=== PATIENT | female | born 1935 | race Caucasian/White ===

== ENCOUNTER → 2017-07-24 | Day surgery (SDC) | payer MEDICARE, BC | LOC: JP.SDS 00:11 | PROVIDERS: ATTEND Ophthalmology | DX: H26.9 Unspecified cataract (principal); Z53.8 Procedure and treatment not carried out for other reasons ==

== ENCOUNTER 2017-10-03 16:54 | Emergency (ER) | payer MEDICARE, BC ==
[2017-10-03] MEDS ORDERED: HYDROmorphone 1 MG/ML Syringe IM ONE (18:09)
--- NOTE | 2017-10-03 18:13 | EDM.PDOC ---
ED HPI GENERAL MEDICAL PROBLEM - General Chief Complaint: Lower Extremity Injury/Pain Stated Complaint: SPERLE SENT OVER FOR CT Time Seen by Provider: 10/03/17 17:59 Source of Information: Reports: Patient, Family, RN Notes Reviewed History Limitations: Reports: No Limitations - History of Present Illness INITIAL COMMENTS - FREE TEXT/NARRATIVE: 82-year-old female presents emergency department day complaint of left hip pain she does have a history of surgery 2 as well as severe osteoporosis on this left hip she states about a week ago she was bending over picked up a piece of lint off the floor sudden onset of pain has now developed severe bruising and difficulty with ambulation hard for her to bear weight she denies any specific trauma but states she did go to the floor at the time of pain onset Left Hip Pain Score (Numeric/FACES): 6 - Related Data Allergies Allergy/AdvReac Type Severity Reaction Status Date / Time Penicillins Allergy Facial Verified 10/03/17 17:42 Swelling lisinopril AdvReac Cough Verified 10/03/17 17:42 Home Meds: Home Meds Acetaminophen [Tylenol] 650 mg PO ASDIRECTED PRN 10/03/17 [History] Aspirin [Halfprin] 1 tab PO BEDTIME 10/03/17 [History] Gabapentin [Neurontin] 1 tab PO DAILY 10/03/17 [History] LORazepam [LORazepam] 1 tab PO ASDIRECTED 10/03/17 [History] Latanoprost [Latanoprost] 1 drop EYEBOTH BEDTIME 10/03/17 [History] Levothyroxine [Synthroid] 1 tab PO DAILY 10/03/17 [History] Losartan [Cozaar] 1 tab PO DAILY 10/03/17 [History] Propranolol [Inderal] 1 tab PO DAILY 10/03/17 [History] Sertraline [Zoloft] 150 mg PO BEDTIME 10/03/17 [History] Zolpidem Tartrate [Zolpidem Tartrate] 1 tab PO BEDTIME 10/03/17 [History] atorvaSTATin [Lipitor] 1 tab PO BEDTIME 10/03/17 [History] fentaNYL [Duragesic] 1 patch TOP ASDIRECTED 10/03/17 [History] fentaNYL [Duragesic] 1 patch TOP ASDIRECTED 10/03/17 [History] Past Medical History HEENT History: Reports: Glaucoma, Impaired Vision Cardiovascular History: Reports: High Cholesterol, Hypertension Gastrointestinal History: Reports: Chronic Constipation, Diverticulosis, GERD, Hiatal Hernia, Irritable Bowel Syndrome 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 Social & Family History - Tobacco Use Smoking Status *Q: Never Smoker - Recreational Drug Use Recreational Drug Use: No Review of Systems - Review of Systems Review Of Systems: See Below Respiratory: Reports: No Symptoms Cardiovascular: Reports: No Symptoms Musculoskeletal: Reports: Joint Pain (Left hip pain) Skin: Reports: Bruising Neurological: Reports: No Symptoms ED EXAM, GENERAL - Physical Exam Exam: See Below Free Text/Narrative:: Examination of the left hip there is a large ecchymotic bruise over the hip and gluteus area on the left side she is tender to palpation of the greater trochanter however flexion-extension internal and external Rotation of the hip do not elicit pain she cannot bear weight without tenderness Exam Limited By: No Limitations General Appearance: Alert, WD/WN, No Apparent Distress Respiratory/Chest: No Respiratory Distress Course - Vital Signs Last Recorded V/S: Last Vital Signs Temp 97.2 F 10/03/17 17:38 Pulse 69 10/03/17 19:54 Resp 18 10/03/17 17:38 BP 133/74 10/03/17 19:54 Pulse Ox 92 L 10/03/17 19:54 - Orders/Labs/Meds Orders: Active Orders 24 hr Category Date Time Status Hip wo Cont Lt [CT] Stat Exams 10/03/17 18:09 Taken Labs: Laboratory Tests 10/03/17 10/03/17 Range/Units 18:23 18:23 WBC 6.6 (4.5-11.0) K/uL RBC 4.20 (3.30-5.50) M/uL Hgb 13.1 (12.0-15.0) g/dL Hct 40.1 (36.0-48.0) % MCV 96 (80-98) fL MCH 31 (27-31) pg MCHC 33 (32-36) % Plt Count 303 (150-400) K/uL Neut % (Auto) 47 (36-66) % Lymph % (Auto) 34 (24-44) % Wilkes % (Auto) 12 H (2-6) % Eos % (Auto) 6 H (2-4) % Baso % (Auto) 1 (0-1) % Sodium 139 L (140-148) mmol/L Potassium 4.0 (3.6-5.2) mmol/L Chloride 104 (100-108) mmol/L Carbon Dioxide 31 (21-32) mmol/L Anion Gap 8.0 (5.0-14.0) mmol/L BUN 14 (7-18) mg/dL Creatinine 0.9 (0.6-1.0) mg/dL Est Cr Clr Drug Dosing 48.48 mL/min Estimated GFR (MDRD) > 60 (>60) Glucose 100 (74-106) mg/dL Calcium 9.1 (8.5-10.1) mg/dL Meds: Medications Discontinued Medications Generic Name Dose Route Start Last Admin Trade Name Freq PRN Reason Stop Dose Admin Hydromorphone HCl 1 mg 10/03/17 18:09 10/03/17 19:00 Dilaudid IM 10/03/17 18:10 1 mg ONETIME ONE Administration Departure - Departure Time of Disposition: 20:03 Disposition: Home, Self-Care 01 Condition: Fair Clinical Impression: Left hip pain, Hematoma - Discharge Information Referrals: Miguel Lema MD [Primary Care Provider] - Forms: ED Department Discharge Additional Instructions: Use hydrocodone as needed for pain control, Please followup with your primary care provider in 3-5 days if not better, please call return to the emergency department with worsening of symptoms. - My Orders Last 24 Hours: My Active Orders 10/03/17 18:09 Hip wo Cont Lt [CT] Stat - Assessment/Plan Last 24 Hours: My Active Orders 10/03/17 18:09 Hip wo Cont Lt [CT] Stat Plan: Assessment Acuity = acute Site and laterality = left hip pain with large intramuscular bruising Etiology = unclear etiology Manifestations = none Location of injury = Home Lab values = CBC, BMP unremarkable, CT scan shows fragmented ossification superior to the left femoral neck of unclear chronicity left gluteus lisa intramuscular hematoma Plan Did review lab work CT scan results with her she is not interested in any surgical intervention at this time plan is to treat additional pain with hydrocodone therefore prescription written for 10 tablets 5/325 one by mouth 3 times a day when necessary follow-up primary care 3-5 days for reevaluation Patient was in agreement with the plan all questions were answered, they were instructed to return to the emergency department or call for worsening symptoms. This note was dictated using Wattpad voice recognition software please call with any questions.
== END 2017-10-03 20:10 | disposition home or self-care (01) ==
LOC: JP.ED 16:54
DX: S70.02XA Contusion of left hip, initial encounter (principal); E03.9 Hypothyroidism, unspecified; M81.0 Age-related osteoporosis without current pathological fracture; E11.9 Type 2 diabetes mellitus without complications; K21.9 Gastro-esophageal reflux disease without esophagitis; I10 Essential (primary) hypertension; Z88.0 Allergy status to penicillin; Z88.8 Allergy status to other drugs, medicaments and biological substances; Z79.82 Long term (current) use of aspirin; Z79.899 Other long term (current) drug therapy; X50.9XXA Other and unspecified overexertion or strenuous movements or postures, initial encounter
CPT/HCPCS: 36415; 73700; 80048; 85025; 96372; 99284; J1170; 99283

== ENCOUNTER 2018-03-26 21:25 | Emergency (ER) | payer MEDICARE, BC ==
--- NOTE | 2018-03-26 22:17 | EDM.PDOC ---
ED HPI GENERAL MEDICAL PROBLEM - General Chief Complaint: General Stated Complaint: ILLNESS Time Seen by Provider: 03/26/18 21:45 Source of Information: Reports: Patient, EMS History Limitations: Reports: No Limitations - History of Present Illness INITIAL COMMENTS - FREE TEXT/NARRATIVE: 82-year-old female with a long history of anxiety and panic attacks felt a fluttering in and uncomfortable feeling in her chest earlier this evening about 2 hours ago. She had no pain or shortness of breath. She took an Ativan that didn't seem to be helping as much as it normally does so she called the ambulance. Ambulance commented that her blood pressure was high, gave her nitroglycerin and by the time she came to the emergency room her symptoms had resolved. An EKG in route showed no arrhythmia. She has no fevers or chills, cough, nausea or vomiting. Patient was concerned that her blood pressure was " so high, 150/90" Onset: Sudden Duration: Hour(s): (Within the last 2-3 hours) Severity: Mild Associated Symptoms: Denies: Chest Pain, Cough, Loss of Appetite, Nausea/ Vomiting - Related Data Allergies Allergy/AdvReac Type Severity Reaction Status Date / Time Penicillins Allergy Facial Verified 10/03/17 17:42 Swelling lisinopril AdvReac Cough Verified 10/03/17 17:42 Home Meds: Home Meds Acetaminophen [Tylenol] 650 mg PO ASDIRECTED PRN 10/03/17 [History] Aspirin [Halfprin] 1 tab PO BEDTIME 10/03/17 [History] Gabapentin [Neurontin] 1 tab PO DAILY 10/03/17 [History] LORazepam 1 tab PO ASDIRECTED 10/03/17 [History] Latanoprost 1 drop EYEBOTH BEDTIME 10/03/17 [History] Levothyroxine [Synthroid] 1 tab PO DAILY 10/03/17 [History] Losartan [Cozaar] 1 tab PO DAILY 10/03/17 [History] Propranolol [Inderal] 1 tab PO DAILY 10/03/17 [History] Sertraline [Zoloft] 150 mg PO BEDTIME 10/03/17 [History] Zolpidem Tartrate 1 tab PO BEDTIME 10/03/17 [History] atorvaSTATin [Lipitor] 1 tab PO BEDTIME 10/03/17 [History] fentaNYL [Duragesic] 1 patch TOP ASDIRECTED 10/03/17 [History] fentaNYL [Duragesic] 1 patch TOP ASDIRECTED 10/03/17 [History] Past Medical History HEENT History: Reports: Glaucoma, Impaired Vision Cardiovascular History: Reports: High Cholesterol, Hypertension Gastrointestinal History: Reports: Chronic Constipation, Diverticulosis, GERD, Hiatal Hernia, 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 Social & Family History - Tobacco Use Smoking Status *Q: Never Smoker - Caffeine Use Caffeine Use: Reports: Coffee - Recreational Drug Use Recreational Drug Use: No ED ROS GENERAL - Review of Systems Review Of Systems: See Below Constitutional: Denies: Fever, Chills Respiratory: Denies: Shortness of Breath, Cough Cardiovascular: Reports: Palpitations. Denies: Chest Pain GI/Abdominal: Denies: Abdominal Pain, Nausea Skin: Reports: No Symptoms Neurological: Denies: Headache Psychiatric: Reports: Anxiety ED EXAM, GENERAL - Physical Exam Exam: See Below Exam Limited By: No Limitations General Appearance: Alert, No Apparent Distress Eye Exam: Bilateral Eye: EOMI Respiratory/Chest: No Respiratory Distress, Lungs Clear Cardiovascular: Regular Rate, Rhythm GI/Abdominal: Non-Tender Neurological: Alert, Oriented Psychiatric: Anxious Skin Exam: Warm, Dry Course - Vital Signs Last Recorded V/S: Last Vital Signs Temp 99.1 F 03/26/18 21:45 Pulse 66 03/26/18 21:45 Resp 20 03/26/18 21:45 BP 135/76 03/26/18 21:45 Pulse Ox 98 03/26/18 21:45 - Re-Assessments/Exams Free Text/Narrative Re-Assessment/Exam: 03/26/18 22:42 Patient was monitored for over an hour and was very stable, had no additional symptoms and her vitals were normal. She was discharged without further workup. Departure - Departure Time of Disposition: 22:54 Disposition: Home, Self-Care 01 Condition: Good Clinical Impression: Anxiety about health, Palpitations - Discharge Information Instructions: Palpitations, [id number] Referrals: PCP,None [Primary Care Provider] - Forms: ED Department Discharge Care Plan Goals: Continue your current medications, get rest tonight and return at any time if worsening or concerns.
== END 2018-03-26 22:54 | disposition home or self-care (01) ==
LOC: JP.ED 21:25
DX: F41.9 Anxiety disorder, unspecified (principal); E78.00 Pure hypercholesterolemia, unspecified; I10 Essential (primary) hypertension; E11.9 Type 2 diabetes mellitus without complications; E03.9 Hypothyroidism, unspecified; Z88.8 Allergy status to other drugs, medicaments and biological substances; Z88.0 Allergy status to penicillin; Z79.899 Other long term (current) drug therapy
CPT/HCPCS: 99283

== ENCOUNTER 2018-08-22 18:16 | Emergency (ER) | payer MEDICARE, BC ==
[2018-08-22] MEDS ORDERED: Aspirin 81 MG Tab.Chew PO ONE (18:31)
--- NOTE | 2018-08-22 18:34 | EDM.PDOC ---
ED HPI GENERAL MEDICAL PROBLEM - General Chief Complaint: Chest Pain Stated Complaint: CHEST PAIN Time Seen by Provider: 08/22/18 18:32 Source of Information: Reports: Patient History Limitations: Reports: No Limitations - History of Present Illness INITIAL COMMENTS - FREE TEXT/NARRATIVE: pt arrived because she was having chest pain this afternoon. The ambulance did come when she put her medical alert on and decided not to bring her. Her daughter stopped in and she was still having pain so brought her to the er. Onset: Today Duration: Hour(s): Location: Reports: Chest Chest Pain Score (Numeric/FACES): 7 - Related Data Allergies Allergy/AdvReac Type Severity Reaction Status Date / Time Penicillins Allergy Facial Verified 08/22/18 18:26 Swelling lisinopril AdvReac Cough Verified 08/22/18 18:26 Home Meds: Home Meds Acetaminophen [Tylenol] 650 mg PO ASDIRECTED PRN 10/03/17 [History] Aspirin [Halfprin] 1 tab PO BEDTIME 10/03/17 [History] Gabapentin [Neurontin] 1 tab PO DAILY 10/03/17 [History] LORazepam 1 tab PO ASDIRECTED 10/03/17 [History] Latanoprost 1 drop EYEBOTH BEDTIME 10/03/17 [History] Levothyroxine [Synthroid] 1 tab PO DAILY 10/03/17 [History] Losartan [Cozaar] 1 tab PO DAILY 10/03/17 [History] Propranolol [Inderal] 1 tab PO DAILY 10/03/17 [History] Sertraline [Zoloft] 150 mg PO BEDTIME 10/03/17 [History] Zolpidem Tartrate 1 tab PO BEDTIME 10/03/17 [History] fentaNYL [Duragesic] 1 patch TOP ASDIRECTED 10/03/17 [History] Past Medical History HEENT History: Reports: Glaucoma, Impaired Vision Cardiovascular History: Reports: High Cholesterol, Hypertension Gastrointestinal History: Reports: Chronic Constipation, Diverticulosis, GERD, Hiatal Hernia, 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 Social & Family History - Caffeine Use Caffeine Use: Reports: Coffee ED ROS GENERAL - Review of Systems Review Of Systems: See Below Constitutional: Reports: No Symptoms HEENT: Reports: No Symptoms Respiratory: Reports: No Symptoms Cardiovascular: Reports: Chest Pain, Other (pt has pain between her shoulder blades. ) GI/Abdominal: Reports: Other (pt has a known history of a hiatal hernia. ) : Reports: No Symptoms Musculoskeletal: Reports: No Symptoms Skin: Reports: No Symptoms Neurological: Reports: No Symptoms Psychiatric: Reports: Anxiety ED EXAM, GENERAL - Physical Exam Exam: See Below Free Text/Narrative:: pt arrived with pain in the epigastric area. This extends to the chest and she has pain between her shoulder blades. Exam Limited By: No Limitations General Appearance: Alert, Anxious, Moderate Distress Ears: Normal TMs Nose: Normal Inspection Throat/Mouth: Normal Inspection Head: Atraumatic Neck: Normal Inspection Respiratory/Chest: No Respiratory Distress Cardiovascular: Regular Rate, Rhythm, Other (pt is having pain accross her chest and bwetween the shoulder blades. ) GI/Abdominal: Soft, Non-Tender (Female) Exam: Deferred Rectal (Female) Exam: Deferred Back Exam: Normal Inspection Extremities: Normal Inspection Neurological: Alert, Oriented, Normal Cognition Psychiatric: Anxious Course - Vital Signs Last Recorded V/S: Last Vital Signs Temp 36.7 C 08/22/18 18:37 Pulse 64 08/22/18 21:47 Resp 16 08/22/18 21:47 BP 134/68 08/22/18 21:47 Pulse Ox 92 L 08/22/18 21:47 - Orders/Labs/Meds Orders: Active Orders 24 hr Category Date Time Status EKG Documentation Completion [RC] ASDIRECTED Care 08/22/18 18:30 Active Chest 1V Frontal [CR] Stat Exams 08/22/18 18:44 Taken Nitroglycerin [Nitrostat] Med 08/22/18 19:19 Active 0.4 mg SL Q5M PRN Sodium Chloride 0.9% [Normal Saline] 1,000 ml Med 08/22/18 19:00 Active IV ASDIRECTED EKG 12 Lead [EK] Routine Ther 08/22/18 18:30 Ordered Medication Orders Sodium Chloride (Normal Saline) 1,000 mls @ 150 mls/hr IV ASDIRECTED WILLIAM Last Admin: 08/22/18 18:57 Dose: 150 mls/hr Nitroglycerin (Nitrostat) 0.4 mg SL Q5M PRN PRN Reason: Chest Pain Last Admin: 08/22/18 19:10 Dose: 0.4 mg Labs: Laboratory Tests 08/22/18 08/22/18 08/22/18 Range/Units 18:42 18:42 18:42 WBC 6.7 (4.5-11.0) K/uL RBC 4.19 (3.30-5.50) M/uL Hgb 13.2 (12.0-15.0) g/dL Hct 40.3 (36.0-48.0) % MCV 96 (80-98) fL MCH 32 H (27-31) pg MCHC 33 (32-36) % Plt Count 276 (150-400) K/uL Neut % (Auto) 50 (36-66) % Lymph % (Auto) 31 (24-44) % Maury % (Auto) 12 H (2-6) % Eos % (Auto) 6 H (2-4) % Baso % (Auto) 1 (0-1) % Sodium 138 L (140-148) mmol/L Potassium 4.4 (3.6-5.2) mmol/L Chloride 104 (100-108) mmol/L Carbon Dioxide 29 (21-32) mmol/L Anion Gap 9.4 (5.0-14.0) mmol/L BUN 16 (7-18) mg/dL Creatinine 1.0 (0.6-1.0) mg/dL Est Cr Clr Drug Dosing 42.91 mL/min Estimated GFR (MDRD) 53 L (>60) Glucose 114 H (74-106) mg/dL Calcium 8.5 (8.5-10.1) mg/dL Total Bilirubin 0.4 (0.2-1.0) mg/dL AST 20 (15-37) U/L ALT 14 (12-78) U/L Alkaline Phosphatase 96 (46-116) U/L Troponin I < 0.017 (0.000-0.056) ng/mL Total Protein 6.8 (6.4-8.2) g/dL Albumin 3.2 L (3.4-5.0) g/dL Globulin 3.6 H (2.3-3.5) g/dL Albumin/Globulin Ratio 0.9 L (1.2-2.2) Lipase (73-393) U/L TSH, Ultra Sensitive (0.358-3.740) uIU/mL 08/22/18 08/22/18 08/22/18 Range/Units 18:42 19:18 21:01 WBC (4.5-11.0) K/uL RBC (3.30-5.50) M/uL Hgb (12.0-15.0) g/dL Hct (36.0-48.0) % MCV (80-98) fL MCH (27-31) pg MCHC (32-36) % Plt Count (150-400) K/uL Neut % (Auto) (36-66) % Lymph % (Auto) (24-44) % Maury % (Auto) (2-6) % Eos % (Auto) (2-4) % Baso % (Auto) (0-1) % Sodium (140-148) mmol/L Potassium (3.6-5.2) mmol/L Chloride (100-108) mmol/L Carbon Dioxide (21-32) mmol/L Anion Gap (5.0-14.0) mmol/L BUN (7-18) mg/dL Creatinine (0.6-1.0) mg/dL Est Cr Clr Drug Dosing mL/min Estimated GFR (MDRD) (>60) Glucose (74-106) mg/dL Calcium (8.5-10.1) mg/dL Total Bilirubin (0.2-1.0) mg/dL AST (15-37) U/L ALT (12-78) U/L Alkaline Phosphatase (46-116) U/L Troponin I < 0.017 (0.000-0.056) ng/mL Total Protein (6.4-8.2) g/dL Albumin (3.4-5.0) g/dL Globulin (2.3-3.5) g/dL Albumin/Globulin Ratio (1.2-2.2) Lipase 53 L (73-393) U/L TSH, Ultra Sensitive 1.900 (0.358-3.740) uIU/mL Meds: Medications Generic Name Dose Route Start Last Admin Trade Name Frejose PRN Reason Stop Dose Admin Sodium Chloride 1,000 mls @ 150 mls/hr 08/22/18 19:00 08/22/18 18:57 Normal Saline IV 150 mls/hr ASDIRECTED WILLIAM Administration Nitroglycerin 0.4 mg 08/22/18 19:19 08/22/18 19:10 Nitrostat SL 0.4 mg Q5M PRN Administration Chest Pain Discontinued Medications Generic Name Dose Route Start Last Admin Trade Name Freq PRN Reason Stop Dose Admin Aspirin 243 mg 08/22/18 18:31 08/22/18 19:00 Aspirin PO 08/22/18 18:32 Not Given ONETIME ONE Al Hydroxide/Mg Hydroxide 15 0 ml 08/22/18 19:18 08/22/18 19:22 ml/ Lidocaine HCl 15 ml PO 08/22/18 19:19 30 ml ONETIME ONE Administration Hydromorphone HCl 0.5 mg 08/22/18 19:37 08/22/18 19:46 Dilaudid IVPUSH 08/22/18 19:38 0.5 mg ONETIME ONE Administration Hydromorphone HCl 1 mg 08/22/18 20:09 08/22/18 20:17 Dilaudid IVPUSH 08/22/18 20:10 1 mg ONETIME ONE Administration Nitroglycerin 0.4 mg 08/22/18 18:46 08/22/18 18:50 Nitrostat SL 08/22/18 18:47 0.4 mg ONETIME ONE Administration Pantoprazole Sodium 40 mg 08/22/18 19:44 08/22/18 19:50 Protonix Iv IVPUSH 08/22/18 19:45 40 mg ONETIME ONE Administration - Re-Assessments/Exams Free Text/Narrative Re-Assessment/Exam: 08/22/18 20:11 pt arrived with pain in the chest and between the shoulder blades. Her ekg shows a rt bundle branch block that is not new. Her trop x2 is neg. Her chest xray reveals a large hital hernia. Her other labs are good. She was given a GI cocktail that was not helpful. Her pain did not improve with nitro. She was given dilaudid 1.5 total with relief of the pain. 08/22/18 21:58 Departure - Departure Time of Disposition: 22:01 Disposition: Home, Self-Care 01 Condition: Fair Clinical Impression: Hiatal hernia with GERD, Strain of thoracic paraspinal muscles excluding T1 and T2 levels Referrals: Miguel Lema MD [Primary Care Provider] - Forms: ED Department Discharge Care Plan Goals: heat to her back area, pt has zantac at home she needs to resume that bid, cont other meds the same. Avoid lying flat particularly after eating, percocet 5/325 q6h prn for severe pain rtc if increased problems. - My Orders Last 24 Hours: My Active Orders 08/22/18 18:30 EKG Documentation Completion [RC] ASDIRECTED EKG 12 Lead [EK] Routine 08/22/18 18:44 Chest 1V Frontal [CR] Stat 08/22/18 19:00 Sodium Chloride 0.9% [Normal Saline] 1,000 ml IV ASDIRECTED 08/22/18 19:19 Nitroglycerin [Nitrostat] 0.4 mg SL Q5M PRN - Assessment/Plan Last 24 Hours: My Active Orders 08/22/18 18:30 EKG Documentation Completion [RC] ASDIRECTED EKG 12 Lead [EK] Routine 08/22/18 18:44 Chest 1V Frontal [CR] Stat 08/22/18 19:00 Sodium Chloride 0.9% [Normal Saline] 1,000 ml IV ASDIRECTED 08/22/18 19:19 Nitroglycerin [Nitrostat] 0.4 mg SL Q5M PRN
[2018-08-22] MEDS ORDERED: Nitroglycerin 0.4 MG Tab.SL SL ONE (18:46)
[2018-08-22] MEDS ORDERED: Sodium Chloride 0.9% 1,000 ML IV SCH (19:00)
[2018-08-22] MEDS ORDERED: Alum Hydrox/Mag Hydrox/Simeth 15 ML, Lidocaine 2% 15 ML PO ONE ×2 (19:18)
[2018-08-22] MEDS ORDERED: Nitroglycerin 0.4 MG Tab.SL SL PRN (19:19)
[2018-08-22] MEDS ORDERED: HYDROmorphone 0.5 MG/0.5 ML Syringe IVPUSH ONE (19:37)
[2018-08-22] MEDS ORDERED: Pantoprazole 40 MG Vial IVPUSH ONE (19:44)
[2018-08-22] MEDS ORDERED: HYDROmorphone 1 MG/ML Syringe IVPUSH ONE (20:09)
--- NOTE | 2018-08-24 08:54 | CR ---
CHEST: Portable CLINICAL HISTORY:Chest pain COMPARISON:2006 FINDINGS: Patient has a very large hiatal hernia containing much of the stomach. Heart size is aldo l. Pulmonary vascularity is mildly cephalized. This may be positional. No infiltrate or effusion is s een. Impression: Very large hiatal hernia Mild vascular cephalization may be positional
== END 2018-08-22 22:35 | disposition home or self-care (01) ==
LOC: JP.ED 18:16
DX: S29.012A Strain of muscle and tendon of back wall of thorax, initial encounter (principal); K44.9 Diaphragmatic hernia without obstruction or gangrene; K21.9 Gastro-esophageal reflux disease without esophagitis; Z88.0 Allergy status to penicillin; Z88.8 Allergy status to other drugs, medicaments and biological substances; Z79.82 Long term (current) use of aspirin; I10 Essential (primary) hypertension; E11.9 Type 2 diabetes mellitus without complications; X58.XXXA Exposure to other specified factors, initial encounter
CPT/HCPCS: 36415; 71045; 80053; 83690; 84443; 84484; 85025; 93005; 96361; 96374; 96375; 96376; 99285; A9270; C9113; J1170; J7030; 99284

== ENCOUNTER 2019-01-13 15:21 | Emergency (ER) | payer BC, MEDICARE ==
[2019-01-13] MEDS ORDERED: Ketorolac 30 MG/ML SDV IM ONE (16:22)
--- NOTE | 2019-01-13 16:25 | EDM.PDOC ---
ED HPI GENERAL MEDICAL PROBLEM - General Chief Complaint: General Stated Complaint: [place] Time Seen by Provider: 01/13/19 16:18 Source of Information: Reports: Patient, EMS, Family, RN Notes Reviewed History Limitations: Reports: No Limitations - History of Present Illness INITIAL COMMENTS - FREE TEXT/NARRATIVE: 83-year-old female presents to the emergency department today via EMS services for chest pain, she admits to falling yesterday in her bathroom felt she landed mostly on her tailbone but she is unsure. She now has a sharp stabbing pain underneath her right breast she is pain-free while laying down but however sits up and will move this will exacerbate the pain, no nausea vomiting no diaphoresis Right Chest Pain Score (Numeric/FACES): 4 - Related Data Allergies Allergy/AdvReac Type Severity Reaction Status Date / Time Penicillins Allergy Facial Verified 08/22/18 18:26 Swelling lisinopril AdvReac Cough Verified 08/22/18 18:26 Home Meds: Home Meds Acetaminophen [Tylenol] 650 mg PO ASDIRECTED PRN 10/03/17 [History] Aspirin [Halfprin] 1 tab PO BEDTIME 10/03/17 [History] LORazepam 1 tab PO ASDIRECTED 10/03/17 [History] Latanoprost 1 drop EYEBOTH BEDTIME 10/03/17 [History] Levothyroxine [Synthroid] 1 tab PO DAILY 10/03/17 [History] Losartan [Cozaar] 1 tab PO DAILY 10/03/17 [History] Propranolol [Inderal] 1 tab PO DAILY 10/03/17 [History] Sertraline [Zoloft] 150 mg PO BEDTIME 10/03/17 [History] Zolpidem Tartrate 1 tab PO BEDTIME 10/03/17 [History] fentaNYL [Duragesic] 1 patch TOP ASDIRECTED 10/03/17 [History] Past Medical History HEENT History: Reports: Glaucoma, Impaired Vision Cardiovascular History: Reports: High Cholesterol, Hypertension Gastrointestinal History: Reports: Chronic Constipation, Diverticulosis, GERD, Hiatal Hernia, Irritable Bowel Syndrome FAMILY [employer] COUNSELLOR History: Reports: Musculoskeletal History: Reports: Fracture, Osteoporosis Psychiatric History: Reports: Depression Endocrine/Metabolic History: Reports: Diabetes, Type II, Hypothyroidism, Osteoporosis - Infectious Disease History Infectious Disease History: Reports: Chicken Pox, Measles, Mumps - Past Surgical History Head Surgeries/Procedures: Reports: None HEENT Surgical History: Reports: Tonsillectomy GI Surgical History: Reports: Appendectomy, Cholecystectomy, Colonoscopy, EGD, Hernia, Inguinal Musculoskeletal Surgical History: Reports: Hip Replacement, Other (See Below) Other Musculoskeletal Surgeries/Procedures:: ORIF Hip-pins and a anirudh. Dermatological Surgical History: Reports: None Social & Family History - Tobacco Use Smoking Status *Q: Never Smoker - Caffeine Use Caffeine Use: Reports: Coffee - Recreational Drug Use Recreational Drug Use: No ED ROS GENERAL - Review of Systems Review Of Systems: See Below Constitutional: Reports: No Symptoms HEENT: Reports: No Symptoms Respiratory: Reports: No Symptoms Cardiovascular: Reports: Chest Pain GI/Abdominal: Reports: No Symptoms : Reports: No Symptoms Musculoskeletal: Reports: No Symptoms Skin: Reports: No Symptoms Neurological: Reports: No Symptoms ED EXAM, GENERAL - Physical Exam Exam: See Below Exam Limited By: No Limitations General Appearance: Alert, WD/WN, No Apparent Distress Respiratory/Chest: No Respiratory Distress, Lungs Clear, Normal Breath Sounds, No Accessory Muscle Use, Other (Point tender right side midaxilla T5 region) Cardiovascular: Regular Rate, Rhythm, No Murmur GI/Abdominal: Soft, Non-Tender Course - Vital Signs Last Recorded V/S: Last Vital Signs Temp 98.8 F 01/13/19 15:34 Pulse 65 01/13/19 15:34 Resp 13 01/13/19 15:34 BP 158/69 H 01/13/19 15:34 Pulse Ox 94 L 01/13/19 15:34 - Orders/Labs/Meds Meds: Medications Discontinued Medications Generic Name Dose Route Start Last Admin Trade Name Araseli PRN Reason Stop Dose Admin Ketorolac Tromethamine 30 mg 01/13/19 16:22 01/13/19 16:54 Toradol IM 01/13/19 16:23 30 mg ONETIME ONE Administration Departure - Departure Time of Disposition: 17:34 Disposition: Home, Self-Care 01 Condition: Fair Clinical Impression: Chest wall pain - Discharge Information Referrals: PCP,None [Primary Care Provider] - Forms: ED Department Discharge Additional Instructions: Use nonsteroidal anti-inflammatories as needed for pain control, Please followup with your primary care provider in 3-5 days if not better, please call return to the emergency department with worsening of symptoms. - Assessment/Plan Plan: Assessment Acuity = acute Site and laterality = left-sided wall chest pain Etiology = secondary to a fall Manifestations = none Location of injury = Home Lab values = chest x-ray shows old compression fractures and large hiatal hernia otherwise no rib fractures are identified EKG performed by EMS reveals sinus rhythm first degree heart block right bundle branch block EKG is similar to August 2018 Plan She had good relief with the Toradol injection plan is to continue nonsteroidal anti-inflammatories follow-up primary care 3-5 days if not better This note was dictated using [employer] voice recognition software please call with any questions on syntax or grammar.
--- NOTE | 2019-01-13 16:50 | CRLCR ---
INDICATION: Fall 3 days prior, pain T5 region TECHNIQUE: Chest 2 views. COMPARISON: 08/22/2018 FINDINGS: Cardiovascular and mediastinum: Heart size and vasculature are normal in caliber and appearance. Mediastinum is within normal limits. Large hiatal hernia. Lungs and pleural spaces: Lungs are clear. No sign of infiltrate or mass. No sign of pleural effusion. No pneumothorax. Bones and soft tissues: Severe compression deformities involving 2 lower thoracic vertebral bodies with adjacent area of vertebroplasty. IMPRESSION: Severe compression deformities involving 2 lower thoracic vertebral bodies of unknown acuity. No prior exams for comparison. Large hiatal hernia. Dictated by Praveen Ren MD @ 01/13/2019 4:49:05 PM Dictated by: Praveen Ren MD @ 01/13/2019 16:49:09 (Electronically Signed)
== END 2019-01-13 17:42 | disposition home or self-care (01) ==
LOC: JP.ED 15:21
DX: R07.89 Other chest pain (principal); E78.00 Pure hypercholesterolemia, unspecified; I10 Essential (primary) hypertension; K21.9 Gastro-esophageal reflux disease without esophagitis; F32.9 Major depressive disorder, single episode, unspecified; E11.9 Type 2 diabetes mellitus without complications; E03.9 Hypothyroidism, unspecified; W18.30XA Fall on same level, unspecified, initial encounter; Y92.002 Bathroom of unspecified non-institutional (private) residence as the place of occurrence of the external cause; Z88.0 Allergy status to penicillin; Z88.8 Allergy status to other drugs, medicaments and biological substances; Z79.82 Long term (current) use of aspirin; Z79.899 Other long term (current) drug therapy
CPT/HCPCS: 71046; 96372; 99285; J1885; 99284

== ENCOUNTER 2019-04-15 13:35 | Emergency (ER) | payer MEDICARE, MEDICAID ==
[2019-04-15] MEDS ORDERED: HYDROmorphone 0.5 MG/0.5 ML Syringe IVPUSH ONE (14:29)
[2019-04-15] MEDS ORDERED: Sodium Chloride 0.9% 1,000 ML IV SCH (14:30)
--- NOTE | 2019-04-15 15:58 | EDM.PDOC ---
ED HPI GENERAL MEDICAL PROBLEM - General Chief Complaint: Abdominal Pain Stated Complaint: ABDOMINAL PAIN Time Seen by Provider: 04/15/19 14:25 Source of Information: Reports: Patient, Family History Limitations: Reports: No Limitations - History of Present Illness INITIAL COMMENTS - FREE TEXT/NARRATIVE: 84-year-old female brought in by her daughter because of significant left lower quadrant pain for the past 8 hours. No bowel changes, no nausea or vomiting but the pain is fairly intense. No radiation to the back. No urinary symptoms. She has had this type of pain many times in the past but it has never lasted this long. No recent trauma. Onset: Sudden (Started fairly suddenly around 8 AM) Duration: Hour(s): (8 hours) Location: Reports: Abdomen Quality: Reports: Sharp Severity: Moderate Associated Symptoms: Denies: Chest Pain, Cough, Diaphoresis, Fever/Chills, Malaise, Nausea/Vomiting, Shortness of Breath, Weakness Left Lower Abdominal Pain Score (Numeric/FACES): 7 - Related Data Allergies Allergy/AdvReac Type Severity Reaction Status Date / Time Penicillins Allergy Facial Verified 04/15/19 14:07 Swelling lisinopril AdvReac Cough Verified 04/15/19 14:07 Home Meds: Home Meds Acetaminophen [Tylenol] 650 mg PO ASDIRECTED PRN 10/03/17 [History] Aspirin [Halfprin] 1 tab PO BEDTIME 10/03/17 [History] LORazepam 1 tab PO ASDIRECTED 10/03/17 [History] Latanoprost 1 drop EYEBOTH BEDTIME 10/03/17 [History] Levothyroxine [Synthroid] 1 tab PO DAILY 10/03/17 [History] Losartan [Cozaar] 1 tab PO DAILY 10/03/17 [History] Propranolol [Inderal] 1 tab PO DAILY 10/03/17 [History] Sertraline [Zoloft] 150 mg PO BEDTIME 10/03/17 [History] Zolpidem Tartrate 1 tab PO BEDTIME 10/03/17 [History] fentaNYL [Duragesic] 1 patch TOP ASDIRECTED 10/03/17 [History] Docusate Sodium [Colace] 50 mg PO DAILY 04/15/19 [History] Docusate Sodium [Dulcolax Stool Softener] 100 mg RECTAL ASDIRECTED PRN 04/15/19 [History] Past Medical History HEENT History: Reports: Glaucoma, Impaired Vision Cardiovascular History: Reports: High Cholesterol, Hypertension Gastrointestinal History: Reports: Chronic Constipation, Diverticulosis, GERD, Hiatal Hernia, Irritable Bowel Syndrome [employer]PER[employer]OR History: Reports: Musculoskeletal History: Reports: Fracture, Osteoporosis Psychiatric History: Reports: Depression Endocrine/Metabolic History: Reports: Diabetes, Type II, Hypothyroidism, Osteoporosis - Infectious Disease History Infectious Disease History: Reports: Chicken Pox, Measles, Mumps - Past Surgical History Head Surgeries/Procedures: Reports: None HEENT Surgical History: Reports: Cataract Surgery, Tonsillectomy Cardiovascular Surgical History: Reports: None, Aneurysm GI Surgical History: Reports: Appendectomy, Cholecystectomy, Colonoscopy, EGD, Hernia, Inguinal Endocrine Surgical History: Reports: None Musculoskeletal Surgical History: Reports: Hip Replacement, Other (See Below) Other Musculoskeletal Surgeries/Procedures:: ORIF Hip-pins and a anirudh. Dermatological Surgical History: Reports: None Social & Family History - Tobacco Use Smoking Status *Q: Never Smoker Second Hand Smoke Exposure: No - Caffeine Use Caffeine Use: Reports: Coffee - Recreational Drug Use Recreational Drug Use: No ED ROS GENERAL - Review of Systems Review Of Systems: See Below Constitutional: Denies: Fever, Chills HEENT: Reports: No Symptoms Respiratory: Denies: Shortness of Breath Cardiovascular: Denies: Chest Pain GI/Abdominal: Reports: Abdominal Pain. Denies: Constipation, Diarrhea : Reports: No Symptoms Skin: Reports: No Symptoms Neurological: Reports: No Symptoms Psychiatric: Reports: No Symptoms ED EXAM, GI/ABD - Physical Exam Exam: See Below Exam Limited By: No Limitations General Appearance: Alert, Mild Distress (Looks fairly uncomfortable) Eyes: Bilateral: Normal Appearance Respiratory/Chest: No Respiratory Distress, Lungs Clear Cardiovascular: Regular Rate, Rhythm GI/Abdominal Exam: Normal Bowel Sounds, Tender (Very tender to palpation in the left lower quadrant with some mild to moderate guarding but no significant rebound tenderness) Back Exam: No: CVA Tenderness (R), CVA Tenderness (L) Neurological: Alert, Oriented Psychiatric: Anxious Skin Exam: Warm, Dry Course - Vital Signs Last Recorded V/S: Last Vital Signs Temp 97.4 F 04/15/19 14:11 Pulse 86 04/15/19 14:11 Resp 16 04/15/19 14:11 BP 165/90 H 04/15/19 14:11 Pulse Ox 95 04/15/19 14:11 - Orders/Labs/Meds Labs: Laboratory Tests 04/15/19 04/15/19 Range/Units 14:28 14:28 WBC 5.9 (4.5-11.0) K/uL RBC 4.39 (3.30-5.50) M/uL Hgb 13.7 (12.0-15.0) g/dL Hct 42.6 (36.0-48.0) % MCV 97 (80-98) fL MCH 31 (27-31) pg MCHC 32 (32-36) % Plt Count 256 (150-400) K/uL Neut % (Auto) 61 (36-66) % Lymph % (Auto) 23 L (24-44) % Schuyler % (Auto) 10 H (2-6) % Eos % (Auto) 6 H (2-4) % Baso % (Auto) 1 (0-1) % Sodium 137 L (140-148) mmol/L Potassium 4.2 (3.6-5.2) mmol/L Chloride 102 (100-108) mmol/L Carbon Dioxide 29 (21-32) mmol/L Anion Gap 10.2 (5.0-14.0) mmol/L BUN 15 (7-18) mg/dL Creatinine 1.1 H (0.6-1.0) mg/dL Est Cr Clr Drug Dosing 36.91 mL/min Estimated GFR (MDRD) 48 L (>60) Glucose 127 H (74-106) mg/dL Calcium 8.9 (8.5-10.1) mg/dL Total Bilirubin 0.4 (0.2-1.0) mg/dL AST 17 (15-37) U/L ALT 16 (12-78) U/L Alkaline Phosphatase 83 (46-116) U/L Total Protein 6.9 (6.4-8.2) g/dL Albumin 3.5 (3.4-5.0) g/dL Globulin 3.4 (2.3-3.5) g/dL Albumin/Globulin Ratio 1.0 L (1.2-2.2) Meds: Medications Discontinued Medications Generic Name Dose Route Start Last Admin Trade Name Freq PRN Reason Stop Dose Admin Hydromorphone HCl 0.5 mg 04/15/19 14:29 04/15/19 14:54 Dilaudid IVPUSH 04/15/19 14:30 0.5 mg ONETIME ONE Administration Sodium Chloride 1,000 mls @ 250 mls/hr 04/15/19 14:30 04/15/19 14:57 Normal Saline IV 250 mls/hr ASDIRECTED WILLIAM Administration - Re-Assessments/Exams Free Text/Narrative Re-Assessment/Exam: 04/15/19 15:58 IV was started and the patient was given 0.5 mg of IV Dilaudid, a CBC CMP were obtained and a CT scan without contrast of the abdomen obtained. CBC returned normal. 04/15/19 18:44 CT scan returned showing no acute findings and the patient was feeling much better. She may have to have a laparoscopy at some point to look for scar tissue if this is a recurring problem but it is not necessary at this time as symptoms have resolved. She'll return if pain recurs and is unrelenting. She was encouraged to use stool softeners and drink water. Departure - Departure Time of Disposition: 17:08 Disposition: Home, Self-Care 01 Condition: Good Clinical Impression: Abdominal pain Qualifiers: Abdominal location: left lower quadrant Qualified Code(s): R10.32 - Left lower quadrant pain - Discharge Information Instructions: Abdominal Pain, Adult, [id number] Referrals: Miguel Lema MD [Primary Care Provider] - Forms: ED Department Discharge Care Plan Goals: Advance diet and activity as tolerated, no medication changes. Return anytime if worsening or concerns.
--- NOTE | 2019-04-15 16:00 | CRLCT ---
INDICATION: Severe left lower abdominal pain. TECHNIQUE: Volumetric helical scanning of the abdomen and pelvis was performed without contrast material. Coronal and sagittal reconstructions were obtained. COMPARISON: None FINDINGS: Sigmoid diverticulosis is demonstrated. There is no evidence of diverticulitis. The bowel is otherwise unremarkable except for a large hiatal hernia. No free fluid is demonstrated. The liver is normal in size, shape and attenuation. Post op changes of cholecystectomy are demonstrated. No bile duct dilation is evident. The spleen is within normal limits. The adrenal glands are unremarkable. The pancreas is within normal limits. The kidneys are unremarkable. No lymphadenopathy is evident. A right hip replacement is demonstrated produces considerable artifact in the pelvis. The uterus and ovaries are grossly negative The lung bases are clear. Mild fibrotic changes are present in both bases. The heart is normal in size. Calcified coronary arterial plaque is demonstrated. IMPRESSION: 1. Etiology of left lower abdominal pain not evident. 2. Sigmoid diverticulosis but no evidence of diverticulitis 3. Large hiatal hernia. 4. Post cholecystectomy and right hip replacement. Please note that all CT scans at this facility use dose modulation, iterative reconstruction, and/or weight-based dosing when appropriate to reduce radiation dose to as low as reasonably achievable. Dictated by Beny Delong MD @ Apr 15 2019 3:54PM Signed by Dr. Beny Delong @ Apr 15 2019 3:59PM
== END 2019-04-15 17:08 | disposition home or self-care (01) ==
LOC: JP.ED 13:35
DX: R10.32 Left lower quadrant pain (principal); E78.00 Pure hypercholesterolemia, unspecified; I10 Essential (primary) hypertension; F32.9 Major depressive disorder, single episode, unspecified; E11.9 Type 2 diabetes mellitus without complications; E03.9 Hypothyroidism, unspecified; Z88.0 Allergy status to penicillin; Z88.8 Allergy status to other drugs, medicaments and biological substances; Z79.82 Long term (current) use of aspirin; Z79.899 Other long term (current) drug therapy
CPT/HCPCS: 36415; 74176; 80053; 85025; 96361; 96374; 99284; J1170; J7030

== ENCOUNTER 2020-03-26 16:47 | Emergency (ER) | payer MEDICARE, MEDICAID ==
[2020-03-26] MEDS ORDERED: Polyethylene Glycol 3350 Powder 17 GM Packet PO ONE (17:38)
--- NOTE | 2020-03-26 17:44 | EDM.PDOC ---
<Darell Sarkar G - Last Filed: 03/29/20 07:10> ED HPI GENERAL MEDICAL PROBLEM - General Chief Complaint: Abdominal Pain Stated Complaint: MEDICAL VIA TRI Time Seen by Provider: 03/26/20 17:30 Source of Information: Reports: Patient, EMS, Old Records, RN History Limitations: Reports: No Limitations - History of Present Illness INITIAL COMMENTS - FREE TEXT/NARRATIVE: 84 yo female is brought in via EMS from her home in [facility] for mid to L lateral abdominal pain that began mid afternoon today and has since subsided some. Has a fentanyl patch that constipates her such that she has to have a suppository to have a BM. Her last BM was yesterday. Has not used a suppository today. No nausea, vomiting or fever. Pain does not move. No increase in pain with coughing. EMS gave no tx. Lives alone. Onset: Today Onset Date: 03/26/20 Onset Time: 15:00 Duration: Hour(s):, Improving Location: Reports: Abdomen Quality: Reports: Dull Severity: Mild (was worse earlier) Improves with: Reports: Other (time has lessened the pain) Worsens with: Reports: Other (? lack of BM) Context: Reports: Other (See HPI) Associated Symptoms: Reports: No Other Symptoms Treatments FINISH FILER: Reports: Other (see below) (none) Lower Abdomen Pain Score (Numeric/FACES): 7 - Related Data Allergies Allergy/AdvReac Type Severity Reaction Status Date / Time Penicillins Allergy Facial Verified 03/26/20 16:58 Swelling lisinopril AdvReac Cough Verified 03/26/20 16:58 Home Meds: Home Meds Acetaminophen [Tylenol] 650 mg PO ASDIRECTED PRN 10/03/17 [History] Aspirin [Halfprin] 1 tab PO BEDTIME 10/03/17 [History] LORazepam 1 tab PO ASDIRECTED 10/03/17 [History] Latanoprost 1 drop EYEBOTH BEDTIME 10/03/17 [History] Levothyroxine [Synthroid] 1 tab PO DAILY 10/03/17 [History] Losartan [Cozaar] 1 tab PO DAILY 10/03/17 [History] Propranolol [Inderal] 1 tab PO DAILY 10/03/17 [History] Sertraline [Zoloft] 150 mg PO BEDTIME 10/03/17 [History] Zolpidem Tartrate 1 tab PO BEDTIME 10/03/17 [History] fentaNYL [Duragesic] 1 patch TOP ASDIRECTED 10/03/17 [History] Docusate Sodium [Colace] 50 mg PO DAILY 04/15/19 [History] Docusate Sodium [Dulcolax Stool Softener] 100 mg RECTAL ASDIRECTED PRN 04/15/19 [History] Past Medical History HEENT History: Reports: Glaucoma, Impaired Vision Cardiovascular History: Reports: High Cholesterol, Hypertension Gastrointestinal History: Reports: Chronic Constipation, Diverticulosis, GERD, Hiatal Hernia, Irritable Bowel Syndrome 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: Musculoskeletal History: Reports: Fracture, Osteoporosis Psychiatric History: Reports: Depression Endocrine/Metabolic History: Reports: Diabetes, Type II, Hypothyroidism, Osteoporosis - Infectious Disease History Infectious Disease History: Reports: Chicken Pox, Measles, Mumps - Past Surgical History Head Surgeries/Procedures: Reports: None HEENT Surgical History: Reports: Cataract Surgery, Tonsillectomy Cardiovascular Surgical History: Reports: None, Aneurysm GI Surgical History: Reports: Appendectomy, Cholecystectomy, Colonoscopy, EGD, Hernia, Inguinal Endocrine Surgical History: Reports: None Musculoskeletal Surgical History: Reports: Hip Replacement, Other (See Below) Other Musculoskeletal Surgeries/Procedures:: ORIF Hip-pins and a anirudh. Dermatological Surgical History: Reports: None Social & Family History - Tobacco Use Smoking Status *Q: Never Smoker Second Hand Smoke Exposure: No - Caffeine Use Caffeine Use: Reports: Coffee - Recreational Drug Use Recreational Drug Use: No ED ROS GENERAL - Review of Systems Review Of Systems: See Below Constitutional: Reports: No Symptoms HEENT: Reports: No Symptoms Respiratory: Reports: No Symptoms Cardiovascular: Reports: No Symptoms GI/Abdominal: Reports: Abdominal Pain, Constipation (mild). Denies: Anorexia, Black Stool, Bloody Stool, Diarrhea, Distension, Flatus, Hematemesis, Hematochezia, Melena, Nausea, Vomiting : Reports: No Symptoms Musculoskeletal: Reports: No Symptoms Skin: Reports: No Symptoms Neurological: Reports: No Symptoms ED EXAM, GI/ABD - Physical Exam Exam: See Below Exam Limited By: No Limitations General Appearance: Alert, WD/WN, No Apparent Distress Eyes: Bilateral: Normal Appearance Ears: Normal External Exam, Normal Canal, Hearing Grossly Normal Nose: Normal Inspection, No Blood Throat/Mouth: Normal Inspection, Normal Lips, Normal Oropharynx, Normal Voice, No Airway Compromise Head: Atraumatic, Normocephalic Neck: Normal Inspection, Non-Tender Respiratory/Chest: No Respiratory Distress, Lungs Clear, Normal Breath Sounds, No Accessory Muscle Use Cardiovascular: Regular Rate, Rhythm, No Edema GI/Abdominal Exam: Normal Bowel Sounds, Soft, No Distention, Tender (mild mid to L lateral tenderness). No: Distended, Guarding, Rigid, Rebound Back Exam: Normal Inspection. No: CVA Tenderness (R), CVA Tenderness (L) Extremities: Normal Inspection Neurological: Alert, Oriented, CN II-XII Intact, Normal Cognition, No Motor/ Sensory Deficits Psychiatric: Normal Affect, Normal Mood Skin Exam: Warm, Dry, Intact, Normal Color, No Rash Course - Vital Signs Last Recorded V/S: Last Vital Signs Temp 36.8 C 03/26/20 16:48 Pulse 66 03/26/20 16:48 Resp 16 03/26/20 16:48 BP 160/76 H 03/26/20 16:48 Pulse Ox 94 L 03/26/20 16:48 - Orders/Labs/Meds Labs: Laboratory Tests 03/26/20 03/26/20 03/26/20 Range/Units 17:38 17:38 18:42 WBC 5.9 (4.5-11.0) K/uL RBC 4.31 (3.30-5.50) M/uL Hgb 13.5 (12.0-15.0) g/dL Hct 41.8 (36.0-48.0) % MCV 97 (80-98) fL MCH 31 (27-31) pg MCHC 32 (32-36) % Plt Count 268 (150-400) K/uL Sodium (140-148) mmol/L Potassium (3.6-5.2) mmol/L Chloride (100-108) mmol/L Carbon Dioxide (21-32) mmol/L Anion Gap (5.0-14.0) mmol/L BUN (7-18) mg/dL Creatinine (0.6-1.0) mg/dL Est Cr Clr Drug Dosing mL/min Estimated GFR (MDRD) (>60) Glucose (74-106) mg/dL Calcium (8.5-10.1) mg/dL Total Bilirubin (0.2-1.0) mg/dL AST (15-37) U/L ALT (12-78) U/L Alkaline Phosphatase (46-116) U/L C-Reactive Protein 0.12 (0.0-0.3) mg/dL Total Protein (6.4-8.2) g/dL Albumin (3.4-5.0) g/dL Globulin (2.3-3.5) g/dL Albumin/Globulin Ratio (1.2-2.2) TSH, Ultra Sensitive (0.358-3.740) uIU/mL Urine Color Yellow (YELLOW) Urine Appearance Slightly cloudy A (CLEAR) Urine pH 7.0 (5.0-8.0) Ur Specific [place] 1.025 (1.008-1.030) Urine Protein Negative (NEGATIVE) mg/dL Urine Glucose (UA) Negative (NEGATIVE) mg/dL Urine Ketones Negative (NEGATIVE) mg/dL Urine Occult Blood Trace-intact H (NEGATIVE) Urine Nitrite Negative (NEGATIVE) Urine Bilirubin Negative (NEGATIVE) Urine Urobilinogen 0.2 (0.2-1.0) EU/dL Ur Leukocyte Esterase Moderate H (NEGATIVE) Urine RBC 0-5 (0-5) Urine WBC Not seen (0-5) Ur Epithelial Cells Moderate Amorphous Sediment Moderate Urine Bacteria Moderate Urine Mucus Not seen 03/26/20 03/26/20 Range/Units 18:42 19:22 WBC (4.5-11.0) K/uL RBC (3.30-5.50) M/uL Hgb (12.0-15.0) g/dL Hct (36.0-48.0) % MCV (80-98) fL MCH (27-31) pg MCHC (32-36) % Plt Count (150-400) K/uL Sodium 140 (140-148) mmol/L Potassium 4.3 (3.6-5.2) mmol/L Chloride 103 (100-108) mmol/L Carbon Dioxide 28 (21-32) mmol/L Anion Gap 9.3 (5.0-14.0) mmol/L BUN 12 (7-18) mg/dL Creatinine 1.1 H (0.6-1.0) mg/dL Est Cr Clr Drug Dosing 38.34 mL/min Estimated GFR (MDRD) 48 L (>60) Glucose 112 H (74-106) mg/dL Calcium 8.8 (8.5-10.1) mg/dL Total Bilirubin 0.6 (0.2-1.0) mg/dL AST 18 (15-37) U/L ALT 20 (12-78) U/L Alkaline Phosphatase 60 (46-116) U/L C-Reactive Protein (0.0-0.3) mg/dL Total Protein 6.8 (6.4-8.2) g/dL Albumin 3.5 (3.4-5.0) g/dL Globulin 3.3 (2.3-3.5) g/dL Albumin/Globulin Ratio 1.1 L (1.2-2.2) TSH, Ultra Sensitive 9.959 H (0.358-3.740) uIU/mL Urine Color (YELLOW) Urine Appearance (CLEAR) Urine pH (5.0-8.0) Ur Specific [place] (1.008-1.030) Urine Protein (NEGATIVE) mg/dL Urine Glucose (UA) (NEGATIVE) mg/dL Urine Ketones (NEGATIVE) mg/dL Urine Occult Blood (NEGATIVE) Urine Nitrite (NEGATIVE) Urine Bilirubin (NEGATIVE) Urine Urobilinogen (0.2-1.0) EU/dL Ur Leukocyte Esterase (NEGATIVE) Urine RBC (0-5) Urine WBC (0-5) Ur Epithelial Cells Amorphous Sediment Urine Bacteria Urine Mucus Meds: Medications Discontinued Medications Generic Name Dose Route Start Last Admin Trade Name Freq PRN Reason Stop Dose Admin Magnesium Citrate 148 ml 03/26/20 19:28 03/26/20 19:36 Citrate Of Magnesia PO 03/26/20 19:29 148 ml ONETIME ONE Administration Pantoprazole Sodium 40 mg 03/26/20 19:22 03/26/20 19:36 Protonix PO 03/26/20 19:23 40 mg DAILY ONE Administration Polyethylene Glycol 17 gm 03/26/20 17:38 03/26/20 17:49 Miralax PO 03/26/20 17:39 17 gm ONETIME ONE Administration Departure - Departure Time of Disposition: 18:10 Disposition: Home, Self-Care 01 Clinical Impression: Hypothyroid Constipation Qualifiers: Constipation type: slow transit constipation Qualified Code(s): K59.01 - Slow transit constipation Stomach ulcer Qualifiers: Gastric ulcer chronicity: acute Gastric ulcer complication status: without hemorrhage or perforation Qualified Code(s): K25.3 - Acute gastric ulcer without hemorrhage or perforation - Discharge Information *PRESCRIPTION DRUG MONITORING PROGRAM REVIEWED*: No *COPY OF PRESCRIPTION DRUG MONITORING REPORT IN PATIENT RIN: No Instructions: Peptic Ulcer, [id number], Constipation, Adult, [id number] Referrals: PCP,None [Primary Care Provider] - Forms: ED Department Discharge Care Plan Goals: mag citrate, drink 1/2 bottle after getting home, prilosec 20 mg daily for stomach, increase stool softer--colace to 1 tab bid, high fiber diet,push fluids. check with regular Dr regarding her thyroid. Sepsis Event Note - Evaluation Sepsis Screening Result: No Definite Risk - Focused Exam Date Exam was Performed: 03/29/20 Time Exam was Performed: 07:10 <Rebeca Estrada - Last Filed: 03/30/20 07:24> Course - Re-Assessments/Exams Free Text/Narrative Re-Assessment/Exam: 03/26/20 19:20 pt arrived with left sided abdomanal pain wghich has gotten better. She has not had bm today and only had a small one yesterday. She had a fleets ensema with no results. She has not been vomiting. She does have a history of ulcer disease. 03/26/20 19:24 pt does have a past history of pyloric ulcer disease. 03/30/20 07:20 pt has a elevated tsh. Departure - Departure Condition: Fair Sepsis Event Note - Focused Exam Date Exam was Performed: 03/30/20 Time Exam was Performed: 07:20
[2020-03-26] MEDS ORDERED: Pantoprazole 40 MG Tab.CR PO ONE (19:22)
[2020-03-26] MEDS ORDERED: Magnesium Citrate Solution 296 ML Bottle PO ONE (19:28)
--- NOTE | 2020-03-31 12:10 | LETTER ---
03/30/2020 Violeta Pereira [address] [place] [id number] RE: VIOLETA PEREIRA : 1935 Dear Violeta, You recently were at the emergency room, and at that time, you were dealing with some constipation problems and abdominal pain. You have been placed on Prilosec because of your past history of ulcer disease, and it was recommended that you use some magnesium citrate once you get home to stimulate your bowel movements. While you were here at the hospital, you were found to have an elevated TSH, which would mean that your thyroid function is underactive. I am asking you to see your regular physician to have your thyroid medication readjusted. You did have urine culture set up at the time of your visit and that culture has returned negative. If you have questions regarding this, feel free to contact me. Sincerely, /[phone]
== END 2020-03-26 20:40 | disposition home or self-care (01) ==
LOC: JP.ED 16:47
DX: K59.01 Slow transit constipation (principal); K25.3 Acute gastric ulcer without hemorrhage or perforation; E78.00 Pure hypercholesterolemia, unspecified; I10 Essential (primary) hypertension; E11.9 Type 2 diabetes mellitus without complications; E03.9 Hypothyroidism, unspecified; Z79.899 Other long term (current) drug therapy; Z79.82 Long term (current) use of aspirin; Z90.49 Acquired absence of other specified parts of digestive tract; Z88.0 Allergy status to penicillin; Z88.8 Allergy status to other drugs, medicaments and biological substances
CPT/HCPCS: 36415; 80053; 81001; 82272; 84443; 85027; 86140; 87086; 99284; A9270; 99283

== ENCOUNTER 2020-05-09 13:41 | Emergency (ER) | payer MEDICARE, MEDICAID ==
--- NOTE | 2020-05-09 15:04 | EDM.PDOC ---
ED HPI GENERAL MEDICAL PROBLEM - General Chief Complaint: Abdominal Pain Time Seen by Provider: 05/09/20 14:35 Source of Information: Reports: Patient History Limitations: Reports: No Limitations - History of Present Illness INITIAL COMMENTS - FREE TEXT/NARRATIVE: 85-year-old female with right anterior chest pain for the past 2 days. Very localized under her right breast, some discomfort with breathing and moving or laying on her right side. No trauma, no shortness of breath, no fevers or chills or cough. Denies abdominal pain. She did have to take some diuretics because of peripheral edema and it seemed to start about that time 3 to 4 days ago. Onset: Gradual Duration: Day(s): (3 days ago) Location: Reports: Chest Quality: Reports: Sharp Worsens with: Reports: Other (Laying on her right side or palpation of the area is painful), Movement Abdomen Pain Score (Numeric/FACES): 5 - Related Data Allergies Allergy/AdvReac Type Severity Reaction Status Date / Time Penicillins Allergy Facial Verified 05/09/20 14:35 Swelling lisinopril AdvReac Cough Verified 05/09/20 14:35 Home Meds: Home Meds Acetaminophen [Tylenol] 650 mg PO ASDIRECTED PRN 10/03/17 [History] Aspirin [Halfprin] 1 tab PO BEDTIME 10/03/17 [History] LORazepam 1 tab PO ASDIRECTED 10/03/17 [History] Latanoprost 1 drop EYEBOTH BEDTIME 10/03/17 [History] Levothyroxine [Synthroid] 1 tab PO DAILY 10/03/17 [History] Losartan [Cozaar] 1 tab PO DAILY 10/03/17 [History] Propranolol [Inderal] 1 tab PO DAILY 10/03/17 [History] Sertraline [Zoloft] 150 mg PO BEDTIME 10/03/17 [History] Zolpidem Tartrate 1 tab PO BEDTIME 10/03/17 [History] fentaNYL [Duragesic] 1 patch TOP ASDIRECTED 10/03/17 [History] Docusate Sodium [Colace] 50 mg PO DAILY 04/15/19 [History] Docusate Sodium [Dulcolax Stool Softener] 100 mg RECTAL ASDIRECTED PRN 04/15/19 [History] Furosemide [Lasix] 20 mg PO DAILY 05/09/20 [History] Past Medical History HEENT History: Reports: Glaucoma, Impaired Vision Cardiovascular History: Reports: Heart Failure, High Cholesterol, Hypertension Gastrointestinal History: Reports: Chronic Constipation, Diverticulosis, GERD, Hiatal Hernia, 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: Musculoskeletal History: Reports: Fracture, Osteoporosis Psychiatric History: Reports: Depression Endocrine/Metabolic History: Reports: Diabetes, Type II, Hypothyroidism, Osteoporosis - Infectious Disease History Infectious Disease History: Reports: Chicken Pox, Measles, Mumps - Past Surgical History Head Surgeries/Procedures: Reports: None HEENT Surgical History: Reports: Cataract Surgery, Tonsillectomy Cardiovascular Surgical History: Reports: Aneurysm GI Surgical History: Reports: Appendectomy, Cholecystectomy, Colonoscopy, EGD, Hernia, Inguinal Endocrine Surgical History: Reports: None Musculoskeletal Surgical History: Reports: Hip Replacement, Other (See Below) Other Musculoskeletal Surgeries/Procedures:: ORIF Hip-pins and a anirudh. Dermatological Surgical History: Reports: None Social & Family History - Tobacco Use Smoking Status *Q: Never Smoker - Caffeine Use Caffeine Use: Reports: Coffee - Recreational Drug Use Recreational Drug Use: No ED ROS GENERAL - Review of Systems Review Of Systems: See Below Constitutional: Denies: Fever, Chills Respiratory: Reports: Other (Localized right anterior chest pain). Denies: Shortness of Breath Cardiovascular: Reports: Chest Pain GI/Abdominal: Denies: Abdominal Pain, Nausea, Vomiting Skin: Denies: Rash (No rash over sore area) ED EXAM, GENERAL - Physical Exam Exam: See Below Exam Limited By: No Limitations General Appearance: Alert, No Apparent Distress Head: Atraumatic Neck: Supple, Non-Tender Respiratory/Chest: Lungs Clear, Other (Localized tenderness to palpation at the inferior aspect of the right costochondral junction) Cardiovascular: Regular Rate, Rhythm GI/Abdominal: Soft, Non-Tender (No upper abdominal pain to palpation) Extremities: No: Pedal Edema (No peripheral edema) Neurological: Alert, Oriented, No Motor/Sensory Deficits Psychiatric: Normal Affect, Normal Mood Course - Vital Signs Last Recorded V/S: Last Vital Signs Temp 96.7 F L 05/09/20 14:37 Pulse 73 05/09/20 14:37 Resp 14 05/09/20 14:37 BP 130/65 05/09/20 14:37 Pulse Ox 93 L 05/09/20 14:37 - Re-Assessments/Exams Free Text/Narrative Re-Assessment/Exam: 05/09/20 15:03 Explained to the patient that this is a localized area of costochondritis. I recommended 1 dose of Aleve twice daily for the next 3 to 4 days with a heating pad and increased activity. She can recheck if worsening such as increased shortness of breath, fever, or other concerns. Departure - Departure Time of Disposition: 15:40 Disposition: Home, Self-Care 01 Clinical Impression: Costochondritis, acute - Discharge Information Instructions: Costochondritis, [id number] Referrals: Miguel Lema MD [Primary Care Provider] - Forms: ED Department Discharge Care Plan Goals: Try 1 dose of Aleve twice daily along with your other regular medications for the next 2 to 3 days. A warm compress or heating pad may be helpful as well, and increase activity as tolerated. Consider rechecking in 2 to 3 days if not improving satisfactorily. Sepsis Event Note (ED) - Evaluation Sepsis Screening Result: No Definite Risk - Focused Exam Vital Signs: Vital Signs Temp Pulse Resp BP Pulse Ox 05/09/20 14:37 96.7 F L 73 14 130/65 93 L 05/09/20 14:27 96.7 F L 73 14 130/65 93 L
== END 2020-05-09 15:40 | disposition home or self-care (01) ==
LOC: JP.ED 13:41
DX: M94.0 Chondrocostal junction syndrome [Tietze] (principal); I11.0 Hypertensive heart disease with heart failure; I50.9 Heart failure, unspecified; E78.00 Pure hypercholesterolemia, unspecified; F32.9 Major depressive disorder, single episode, unspecified; E03.9 Hypothyroidism, unspecified; Z88.0 Allergy status to penicillin; Z88.6 Allergy status to analgesic agent; Z79.82 Long term (current) use of aspirin; Z79.899 Other long term (current) drug therapy
CPT/HCPCS: 99282; 99284